=== PATIENT | male | born 1960 | race Caucasian/White ===

== ENCOUNTER 2019-10-07 20:14 | Emergency (ER) | payer OTHER ==
--- NOTE | 2019-10-07 22:18 | ED ---
Upper Extremity Pain - HPI Summary HPI Summary: 59-year-old male presents with right elbow pain for the past 4 days. He states he's noticed some swelling to his elbow. He does have a history of cellulitis to the area. Denies any injury. He denies any numbness or tingling. The pain is just in his elbow. He denies any fevers or chills. He is able fully extend his elbow. Does have history of gout. He has had gout in his elbow before. he is diabetic. no previous surgeries to the area. states hurts more if he bumps the area. - History of Current Complaint Chief Complaint: EDExtremityUpper Stated Complaint: RIGHT ELBOW PAIN Time Seen by Provider: 10/07/19 21:51 - Allergies/Home Medications Allergies/Adverse Reactions: Allergies Allergy/AdvReac Type Severity Reaction Status Date / Time No Known Allergies Allergy Verified 10/07/19 20:22 PMH/Surg Hx/FS Hx/Imm Hx Endocrine/Hematology History: Reports: Hx Diabetes Cardiovascular History: Reports: Hx Hypertension Infectious Disease History: No Infectious Disease History: Denies: Traveled Outside the [place] in Last 30 Days - Family History Known Family History: Positive: Non-Contributory - Social History Substance Use Type: Reports: None Smoking Status (MU): Unknown if Ever Smoked Review of Systems Negative: Fever Negative: Chest Pain Negative: Shortness Of Breath Positive: Rash All Other Systems Reviewed And Are Negative: Yes Physical Exam Triage Information Reviewed: Yes Vital Signs On Initial Exam: Initial Vitals Temp Pulse Resp BP Pulse Ox 98.7 F 98 18 129/74 98 10/07/19 20:23 10/07/19 20:23 10/07/19 20:23 10/07/19 20:23 10/07/19 20:23 Vital Signs Reviewed: Yes Appearance: Positive: Well-Appearing Skin: Positive: Warm, Dry Head/Face: Positive: Normal Head/Face Inspection Eyes: Positive: Normal, Conjunctiva Clear ENT: Positive: Pharynx normal Respiratory/Lung Sounds: Positive: Clear to Auscultation, Breath Sounds Present Cardiovascular: Positive: Normal, RRR Musculoskeletal: Positive: Limited @ - full extension right arm, unable to fully flex it, Other - swelling noted to olecranon process with some warmth and trace erythema, good pulses Neurological: Positive: Normal Psychiatric: Positive: Normal Procedures - Sedation Patient Received Moderate/Deep Sedation with Procedure: No Diagnostics - Vital Signs Vital Signs Temp Pulse Resp BP Pulse Ox 10/07/19 20:23 98.7 F 98 18 129/74 98 - Laboratory Result Diagrams: 10/07/19 22:11 10/07/19 22:11 Lab Statement: Any lab studies that have been ordered have been reviewed, and results considered in the medical decision making process. - Radiology elbow Radiology Interpretation Completed By: ED Physician Summary of Radiographic Findings: no joint effusion Course/Dx - Course Course Of Treatment: 59-year-old male presents with right elbow pain for the past 4 days. He states he's noticed some swelling to his elbow. He does have a history of cellulitis to the area. Denies any injury. He denies any numbness or tingling. The pain is just in his elbow. He denies any fevers or chills. He is able fully extend his elbow. Does have history of gout. He has had gout in his elbow before. he is diabetic. no previous surgeries to the area. states hurts more if he bumps the area. On exam swelling noted to olecranon. some warmth to area and minimal erythema. full extension, able to flex to at least 90 but has more pain after that point. xray no joint effusion seen. wbc normal. crp normal. discussed with dr quiroga that likely is bursitis as has normal crp and wbc so unlikely to be septic arthritis. told to keep compression on area with matty. will place on keflex for potential infected bursitis but think this is less likely. gave referral to follow up with ortho. told if develop fever, inability to move joint or area becomes poor red to return. patient understand and agrees with plan. - Diagnoses Differential Diagnosis/HQI/PQRI: Positive: Bursitis, Septic Arthritis, Other - cellulitis Provider Diagnoses: Bursitis of right elbow Discharge ED - Sign-Out/Discharge Documenting (check all that apply): Patient Departure - Discharge Plan Condition: Good Disposition: HOME Prescriptions: Cephalexin CAP* [Keflex CAP*] 500 mg PO BID #13 cap Patient Education Materials: Elbow Bursitis (ED) Referrals: Manuel Mobley MD [Medical Doctor] - Additional Instructions: ice, elevate use matty on the area take keflex twice a day for 7 days Follow up with ortho Return to ED if develop fever, inability to move joint, or any new or worsening symptoms - Billing Disposition and Condition Condition: GOOD Disposition: Home
[2019-10-07 22:31] LABS: ABS Basophils 0.1 10^3/ul (0-0.2); ABS Eosinophils 0.1 10^3/ul (0-0.6); ABS Lymphocytes 1.5 10^3/ul (1.0-4.8); ABS Monocytes 0.5 10^3/ul (0-0.8); ABS Neutrophils 5.2 10^3/ul (1.5-7.7); Eosinophil % 1.6 %; Hematocrit 29 % (42-52); Hemoglobin 9.4 g/dL (14.0-18.0); Lymphocyte % 20.4 %; Mean Corpuscular HGB Conc 32 g/dL (31-36); Mean Corpuscular Hemoglobin 27 pg (27-31); Mean Corpuscular Volume 83 fL (80-94); Mean Platelet Volume 8.1 fL (7.4-10.4); Platelet Count 159 10^3/uL (150-450); Red Blood Count 3.55 10^6 /uL (4.18-5.48); Red Cell Distribution Width 24 % (10-15); White Blood Count 7.4 10^3/uL (3.5-10.8)
[2019-10-07 22:40] LABS: Albumin 3.9 g/dL (3.2-5.2); Albumin/Globulin Ratio 1.1 (1-3); BUN/Creatinine Ratio 30.4 (8-20); C Reactive Protein 5.08 mg/L (<8.01); Calcium 9.3 mg/dL (8.6-10.3); EGFR African American 63.8 (>60); EGFR Non-African American 52.7 (>60); Globulin 3.7 g/dL (2-4); Potassium 4.5 mmol/L (3.5-5.0); Total Bilirubin 0.4 mg/dL (0.2-1.0); Total Protein 7.6 g/dL (6.4-8.9); Uric Acid 4.2 mg/dL (4.4-7.6)
[2019-10-07] MEDS ORDERED: Cephalexin CAP* 500 MG PO ONE (23:01)
[2019-10-07 23:35] VITALS: BP 176/93
[2019-10-07 23:50] LABS: Erythrocyte Sed Rate 41 mm/Hr (0-19)
== END 2019-10-07 23:35 | disposition home or self-care (01) ==
LOC: ED 20:14
DX: M71.521 Other bursitis, not elsewhere classified, right elbow (principal); E11.9 Type 2 diabetes mellitus without complications; I10 Essential (primary) hypertension
CPT/HCPCS: 36415; 80053; 83605; 84550; 85025; 85060; 85652; 86140; 86618; 87040; 99282; A9270-GY

== ENCOUNTER 2020-01-07 09:48 | Emergency (ER) | payer OTHER ==
[2020-01-07 10:22] VITALS: BP 00/0
--- NOTE | 2020-01-07 12:25 | ED ---
HPI Cardiac - HPI Summary HPI Summary: This patient is a 59-year-old male presenting to the ED with request for medication refill. Patient states he is currently living in [place]. He came back for a visit and his bags were lost in another city while flying here. He is currently on medications for hypertension and gout. He also takes over- the-counter omeprazole and folic acid. Patient states he has been without medications for approximately 24 hours. He denies any symptoms. He denies any CP, SOB. States he has never been without his medications and has been on these same medications for several years. - History of Current Complaint Chief Complaint: EDPrescriptionNeeded Stated Complaint: MED REFILL PER PT Time Seen by Provider: 01/07/20 10:01 Hx Obtained From: Patient Pain Intensity: 0 Pain Scale Used: 0-10 Numeric - Risk Factors Pulmonary Embolism Risk Factors: Negative Cardiac Risk Factors: Hypertension Atrial Fibrillation Risk Factors: Negative - Allergy/Home Medications Allergies/Adverse Reactions: Allergies Allergy/AdvReac Type Severity Reaction Status Date / Time No Known Allergies Allergy Verified 01/07/20 09:53 Home Medications: Home Medications Cephalexin CAP* [Keflex CAP*] 500 mg PO BID #13 cap 10/07/19 [Rx] Allopurinol TAB* [Zyloprim 300 MG TAB*] 300 mg PO BID #10 tab 01/07/20 [Rx] Atorvastatin* [Lipitor*] 40 mg PO QPM #5 tab 01/07/20 [Rx] Empaglifozin (NF) [Jardiance] 12.5 mg PO DAILY #5 tablet 01/07/20 [Rx] Lisinopril TAB* [Prinivil TAB 10 MG*] 10 mg PO DAILY #5 tab 01/07/20 [Rx] PMH/Surg Hx/FS Hx/Imm Hx Previously Healthy: Yes Endocrine/Hematology History: Reports: Hx Diabetes Cardiovascular History: Reports: Hx Hypertension - Immunization History Hx Pertussis Vaccination: No Immunizations Up to Date: Yes Infectious Disease History: No Infectious Disease History: Denies: Traveled Outside the [place] in Last 30 Days - Family History Known Family History: Positive: Non-Contributory - Social History Occupation: Employed Full-time Lives: With Family Alcohol Use: None Hx Substance Use: No Substance Use Type: Reports: None Hx Tobacco Use: Yes Smoking Status (MU): Former Smoker Review of Systems Negative: Fever, Chills, Fatigue, Skin Diaphoresis Negative: Palpitations, Chest Pain Negative: Shortness Of Breath, Cough Genitourinary: Negative Positive: no symptoms reported, see HPI Negative: Arthralgia, Myalgia Skin: Negative All Other Systems Reviewed And Are Negative: Yes Physical Exam Triage Information Reviewed: Yes Vital Signs On Initial Exam: Initial Vitals Temp Pulse Resp BP Pulse Ox 98.6 F 93 19 154/84 97 01/07/20 09:51 01/07/20 09:51 01/07/20 09:51 01/07/20 09:51 01/07/20 09:51 Vital Signs Reviewed: Yes Appearance: Positive: Well-Appearing, Well-Nourished Skin: Positive: Warm, Skin Color Reflects Adequate Perfusion Head/Face: Positive: Normal Head/Face Inspection Eyes: Positive: EOMI, ROSA, Conjunctiva Clear Neck: Positive: Supple, No Lymphadenopathy Respiratory/Lung Sounds: Positive: Clear to Auscultation, Breath Sounds Present Cardiovascular: Positive: RRR, Pulses are Symmetrical in both Upper and Lower Extremities Musculoskeletal: Positive: Normal, Strength/ROM Intact Neurological: Positive: Speech Normal Psychiatric: Positive: Normal, Affect/Mood Appropriate AVPU Assessment: Alert Procedures - Sedation Patient Received Moderate/Deep Sedation with Procedure: No Diagnostics - Vital Signs Vital Signs Temp Pulse Resp BP Pulse Ox 01/07/20 10:21 0 F 0 0 00/0 0 01/07/20 09:51 98.6 F 93 19 154/84 97 - Laboratory Lab Statement: Any lab studies that have been ordered have been reviewed, and results considered in the medical decision making process. Disposition - Course Course Of Treatment: Patient is asymptomatic. Prescriptions refilled. Patient will f/u with [facility] if continues to be unable to obtain his medications. - Diagnoses Provider Diagnoses: Medication refill Discharge ED - Sign-Out/Discharge Documenting (check all that apply): Patient Departure - Discharge Plan Condition: Stable Disposition: HOME Prescriptions: Allopurinol TAB* [Zyloprim 300 MG TAB*] 300 mg PO BID #10 tab Atorvastatin* [Lipitor*] 40 mg PO QPM #5 tab Empaglifozin (NF) [Jardiance] 12.5 mg PO DAILY #5 tablet Lisinopril TAB* [Prinivil TAB 10 MG*] 10 mg PO DAILY #5 tab Referrals: [facility] [Outside] No Primary Care Phys,NOPCP [Primary Care Provider] - Additional Instructions: Please follow up with [facility] (call Thursday for appt) if you continue to be without your medications You may also return to the ED Folic acid and omeprazole can be purchased over the counter - Billing Disposition and Condition Condition: STABLE Disposition: Home - Attestation Statements Provider Attestation: I was available for consult. This patient was seen by the MARIELLE. The patient was not presented to, seen by, or examined by me. Uzair Gloria MD
== END 2020-01-07 10:21 | disposition home or self-care (01) ==
LOC: ED 09:48
DX: Z76.0 Encounter for issue of repeat prescription (principal); E11.9 Type 2 diabetes mellitus without complications; I10 Essential (primary) hypertension; Z79.899 Other long term (current) drug therapy; Z87.891 Personal history of nicotine dependence
CPT/HCPCS: 99281